=== PATIENT | male | born 1975 | race Caucasian/White ===

== ENCOUNTER 2020-06-19 11:24 | Emergency (ER) | payer OTHER, SELFPAY ==
[2020-06-19 11:44] VITALS: BP 153/109; PULSE 103; RESP 16; TEMP 36.9; O2SAT 100
--- NOTE | 2020-06-19 11:46 | ED.GENADULT ---
HPI - General Adult General Chief complaint: Skin/Abscess/Foreign Body Stated complaint: splinter in right pointer finger Time Seen by Provider: 06/19/20 11:46 Source: patient and RN notes reviewed Mode of arrival: ambulatory Limitations: no limitations History of Present Illness HPI narrative: 45-year-old male presents with complaints of splinter and pain in right hand 2nd (index) finger for the past 7 days. Rodo says he believed he removed the splinter with a pocket knife and then 2 days later attempted to cut more out with a razor. Believes splinter remains. No numbness or tingling. No radiation of pain. No loss of mobility. Exacerbating factors consist of movement. No relieving factors. Dominant hand is the RIGHT HAND. No fever or chills. The patient reports he have not been diagnosed with COVID-19. The patient reports he is not waiting for the results of a COVID-19 lab test. The patient reports he do not have weakness or fatigue. The patient reports he do not have a new or worsening cough or shortness of breath. Denies chest pain. The patient reports he do not have any rhinorrhea, congestion, loss of taste, sore throat, nausea, vomiting, abdominal pain, and diarrhea. Tolerating po intake well. Denies recent traveling. Denies concerns for COVID-19 or exposures been home with limited outdoor exposure except for essential household needs, work, and return home. At this time, patient is not suspected of having COVID-19. Some parts of this dictation were generated by voice recognition software and may contain typographical and/or grammatical inaccuracies. Related Data Home Medications Medication Instructions Recorded Confirmed apixaban [Eliquis] 5 mg PO DAILY 06/19/20 06/19/20 levothyroxine 75 mcg PO DAILY 06/19/20 06/19/20 Allergies Allergy/AdvReac Type Severity Reaction Status Date / Time No Known Allergies Allergy Verified 06/19/20 11:39 Review of Systems Review of Systems: Narrative: CONSTITUTIONAL: Denies fever, chills, sweats. EYES: Denies visual changes, redness, discharge. ENT: Denies rhinorrhea, congestion, sore throat, otalgia. CARDIOVASCULAR: Denies chest pain, palpitations, edema. RESPIRATORY: Denies dyspnea, wheezing, cough. GASTROINTESTINAL: Denies abdominal pain, nausea, vomiting, diarrhea. SKIN: Denies rash or itching. MUSCULOSKELETAL: Denies acute back pain or myalgia. Complains of splinter and pain in right hand 2nd (index) finger. NEUROLOGIC: Denies numbness or focal weakness. PSYCHIATRIC: Denies anxiety or depression. All other systems reviewed & are unremarkable except as noted in HPI and below. [facility] Past Medical History Medical History Anxiety C. difficile colitis Factor V Leiden Hypercholesteremia Hypothyroidism Pneumonia Pulmonary embolism Ulcerative colitis Surgical History Surgical History (Updated 06/20/20 @ 09:40 by YANNICK Haskins) History of carpal tunnel surgery Bilateral History of cholecystectomy History of thumb surgery Bilateral Family History Family History (Updated 06/19/20 @ 11:56 by YANNICK Haskins) Father Alive and well Mother Alive and well Social History Social History (Updated 06/19/20 @ 11:57 by YANNICK Haskins) Smoking packs per day: 0.5 Smoking cigarettes per day: 10.0 Years smoked: 20 Smoking pack-years: 10.00 Smoking status: Current every day smoker Tobacco type: cigarettes Second hand tobacco smoke exposure: No Alcohol intake: current Substance use: never Living arrangements: with family Occupation/Education: occupation Gender identity (if verbalized by the patient): Male Sexual Orientation (if Verbalized by the Patient): Straight or Heterosexual Comments At time of signature, agree with nurse past medical, surgical, social, and family history. There is no relevant family history pertinent to the presenting complai
[2020-06-19 12:18] VITALS: BP 132/80; PULSE 100
== END 2020-06-19 12:26 | disposition home or self-care (01) ==
PROVIDERS: Emergency Provider Nurse Practitioner Family
DX: L03.011 Cellulitis of right finger (principal); F17.210 Nicotine dependence, cigarettes, uncomplicated; E78.00 Pure hypercholesterolemia, unspecified; E03.9 Hypothyroidism, unspecified; Z86.711 Personal history of pulmonary embolism; D68.51 Activated protein C resistance; Z86.19 Personal history of other infectious and parasitic diseases
CPT/HCPCS: 99213; G0463

== ENCOUNTER → 2021-07-13 02:35 | Outpatient (CLI) | payer OTHER, SELFPAY ==
[2021-07-13 18:39] LABS: SARS-CoV-2 RNA PCR Negative
== END ==
PROVIDERS: Visit Provider Nurse Practitioner Adult Health
DX: R68.89 Other general symptoms and signs (principal); Z20.822 Contact with and (suspected) exposure to COVID-19
CPT/HCPCS: C9803; U0003; U0005